=== PATIENT | female | born 1950 | race Caucasian/White ===

== ENCOUNTER 2025-07-01 00:21 | Outpatient (CLI) | payer MEDICARE, BC, SELFPAY ==
[2025-07-01 10:18] LABS: Abs Immature Grans 0.02 10^3/uL (0.0-0.06); HCT 34.1 % (36.0-46.0); HGB 11.4 g/dL (11.2-15.7); Immature Grans % 0.4 %; MCH 28.3 pg (27.0-33.0); MCHC 33.4 % (32.0-36.0); MCV 85 fL (80-95); MPV 9.8 fL (8.0-11.0); Platelet Count 279 10^3/uL (130-400); RBC 4.03 10^6/uL (3.93-5.22); RDW 13.6 % (11.7-14.6); RDW-SD 41.8 fL; WBC 5.20 10^3/uL (4.4-10.8)
[2025-07-01 10:36] LABS: Magnesium 1.7 mg/dL (1.6-2.6)
[2025-07-01 10:45] LABS: ALT 29 U/L (10-49); AST 33 U/L (<34); Albumin 4.1 g/dL (3.2-5.0); Alkaline Phosphatase 71 U/L (46-116); Anion Gap 7.5 mmol/L (3-11); BUN 26 mg/dL (9-23); Bilirubin, Total 0.9 mg/dL (0.2-1.2); CO2 31.5 mmol/L (20.0-31.0); Calcium 9.0 mg/dL (8.3-10.6); Chloride 93 mmol/L (98-107); Glucose 107 mg/dL (74-106); Potassium 2.9 mmol/L (3.5-5.1); Sodium 132 mmol/L (136-145); Total Protein 7.1 g/dL (5.7-8.2)
== END 2025-07-01 00:22 | disposition home or self-care (01) ==
PROVIDERS: Visit Provider Internal Medicine Hematology & Oncology
DX: C50.111 Malignant neoplasm of central portion of right female breast (principal); Z17.1 Estrogen receptor negative status [ER-]
CPT/HCPCS: 36415; 80053; 83735; 85025